=== PATIENT | female | born 1965 | race Caucasian/White ===

== ENCOUNTER → 2017-03-07 | Outpatient (CLI) | payer OTHER ==
[~2017-03-07] VITALS: Ht 174 cm; Wt 71.2 kg
[~2017-03-07] MED LIST: ALPR0.5T99 PO; CHLORHEXIDINE GLUCONATE 2 % 1 PACK (2 CLOTHS) TOPICAL PRN; DEXTROSE 5% IN WATE 1000ML INJ 1,000 ML IV SCH; ESTE1TAB5 PO; INSULIN HUMAN REGULAR 1,000 UNITS/10 ML VIAL SQ PRN; LACTATED RINGER'S 1000 ML IV PRN; LORTA10 PO; MELO-1 PO; METO50TA PO; METOPROLOL TARTRATE 25 MG TAB PO PRN; MOBI15TA PO; MORPHINE SULFATE 4 MG/ML INJ ONE; PERC5TAB12 PO; POVIDONE IODINE 5% (ANTISEPSIS KIT) 4 APPLICATIONS EACH NARE PRN; PRIS50TA PO; PROM25R PR; PROM25TA10 PO; PROPOFOL 200 MG/20 ML AMP IV ONE; PROT40TA PO; SM M250T PO; SODIUM CHLORID 0.9% 500 ML IV PRN; SOMA350T PO; XANA1TAB2 PO
[2017-03-07 06:50] VITALS: BP 115/79; PULSE 57; RESP 16; TEMP 98.9; O2SAT 98
--- NOTE | 2017-03-07 07:15 | EKG ---
Date Performed: 03/07/2017 Time Performed: 07:04:22 PTAGE: 51 years EKG: SINUS BRADYCARDIA BORDERLINE ECG NO SIGNIFICANT CHANGE FROM PRIOR ELECTROCARDIOGRAM. PREVIOUS TRACING : 08/08/2015 06.53 DOCTOR: Andre Nassar Interpretating Date/Time 03/07/2017 07:14:05
--- NOTE | 2017-03-07 09:05 | PD.PROCEDR ---
GI Procedure PROCEDURE PERFORMED Endoscopic ultrasound INDICATION FOR PROCEDURE Abnormal imaging showing possible pancreatic head lesion PROCEDURE: The procedure, risks and benefits were discussed with Ms. Lopez and informed consent was obtained. Anesthesia sedated her with Diprivan. She was placed in the left lateral decubitus position. EUS: The Pentax videoscope was introduced through the oropharynx and advanced to the second portion of the duodenum . FINDINGS: Initially an evaluation of the esophagus stomach and duodenum was performed and the patient was noted to have some mild gastritis and a small hiatal hernia The endoscopic views of the pancreas appeared to be unremarkable within normal limits the pancreatic parenchyma was homogeneous and mildly hyperechoic with a normal pancreatic duct The pancreas was scanned from head to tail no lesions were appreciated Common bile duct was mildly dilated to about 8 mm Gallbladder was unremarkable except for possibly a small gallbladder polyp No lymphadenopathy was noted ESTIMATED BLOOD LOSS: None SPECIMENS REMOVED: None COMPLICATIONS: None IMPRESSION: Small hiatal hernia Mild gastritis Mild dilation of the common bile duct Otherwise unremarkable endoscopic ultrasound evaluation of the pancreas PLAN: Follow-up with GI in 3-4 weeks Consider repeat imaging several months down the road to further evaluate pancreatic head lesion Shen Phan MD Mar 07, 2017 09:05
[2017-03-07 09:55] VITALS: BP 151/97; PULSE 53; RESP 18; O2SAT 97
== END ==
LOC: HEND 05:55
PROVIDERS: ATTEND Internal Medicine Gastroenterology
DX: R93.5 Abnormal findings on diagnostic imaging of other abdominal regions, including retroperitoneum (principal); K29.70 Gastritis, unspecified, without bleeding; K44.9 Diaphragmatic hernia without obstruction or gangrene; K83.8 Other specified diseases of biliary tract; R00.1 Bradycardia, unspecified
CPT/HCPCS: 00740; 43259; 93005; J2270; J3010; J7120